=== PATIENT | female | born 1980 | race Two or more races ===

== ENCOUNTER 2017-12-21 22:10 | Emergency (ER) | payer BC, OTHER ==
[~2017-12-21] VITALS: Ht 162.6 cm; Wt 73.5 kg
[2017-12-21 22:32] VITALS: BP 151/87
[2017-12-21] MEDS ORDERED: predniSONE 20 MG TABLET ONE (22:39)
[2017-12-21] MEDS ORDERED: predniSONE 20 MG TABLET PO ONE (23:00)
== END 2017-12-21 22:42 | disposition home or self-care (01) ==
LOC: ER 22:14
DX: T78.40XA Allergy, unspecified, initial encounter (principal); X58.XXXA Exposure to other specified factors, initial encounter
CPT/HCPCS: 99283; A4606; J7512; Z7610

== ENCOUNTER 2019-04-03 09:10 | Emergency (ER) | payer BC, OTHER ==
[~2019-04-03] VITALS: Ht 162.6 cm; Wt 72.6 kg
--- NOTE | 2019-04-03 09:19 | NUR ---
lower back pain since 0400 s/p bending down while helping patient. Patient a/ox4, breathing even and unlabored, no sob noted, kept comfortable in bed, ambulatory with steady gait.
--- NOTE | 2019-04-03 09:29 | NUR ---
Patient discharged to home in stable condition. Written and verbal after care instructions given. Patient verbalizes understanding of instruction.
[2019-04-03 09:31] VITALS: BP 154/101
== END 2019-04-03 09:31 | disposition home or self-care (01) ==
LOC: ER 09:14
DX: M54.5 Low back pain (principal)